=== PATIENT | male | born 1985 | race Caucasian/White ===

== ENCOUNTER 2021-05-24 16:15 | Emergency (ER) | payer OTHER, SELFPAY ==
[2021-05-24 16:18] VITALS: BP 127/77; PULSE 91; RESP 18; TEMP 36.4; O2SAT 97
--- NOTE | 2021-05-24 16:50 | W.ED.GENAD ---
Discharge Plan Disposition Patient Disposition: HOME Condition: Stable Discharge Details Clinical Impression: COVID-19 Primary Care Provider: [facility] ED Provider: Tawnya Johnson Home Meds and New Rx's Prescriptions: Continued bupropion HCl [Wellbutrin SR] 100 MG tablet extended release 12 hr 100 mg PO DAILY RF: 0 aspirin [Yazmin Aspirin] 325 mg Tablet 650 mg PO Q8H PRNRF: 0 ibuprofen 200 mg Tablet 400 mg PO Q8H PRNRF: 0 Discharge Instructions Instructions: Viral Syndrome (ED) Additional Instructions: monitor oxygen sats 2 times daily, report sustained sats less than 92% continue ibuprofen 600 mg 4 times daily take with food, can alternate with acetaminophen 650 mg 4 times daily Referrals: [facility] [Primary Care Provider] - Medical Decision Making healthy 35 year old diagnosed with covid 6 days ago. does not meet criteria for monoclonal antibodies. his vitals are normal, oxygenating in the high 90's on room air. he has no shortness of breath or tachypnea , breath sounds are normal throughout. safe for discharge to home. will give pulse oximeter with instruction HPI General Date/Time Provider Initiated Documentation: 05/24/21 16:18. Limitations to Documentation: no limitations. Information obtained by: patient. HPI Narrative: patient presents for evaluation of fever, body aches,headache. was diagnosed with covid 6 days ago. girlfriend also has it. able to eat and drink. no shortness of breath Related Data Home Medications Medication Instructions Recorded Confirmed bupropion HCl [Wellbutrin SR] 100 mg PO DAILY 02/09/13 05/24/21 aspirin [Yazmin Aspirin] 650 mg PO Q8H PRN 05/24/21 05/24/21 ibuprofen 400 mg PO Q8H PRN 05/24/21 05/24/21 Allergies Allergy/AdvReac Type Severity Reaction Status Date / Time No Known Allergies Allergy Unverified 05/24/21 16:21 General Stated Complaint: Fever KRAIG: 3 Review of Systems All systems reviewed & are unremarkable except as noted in HPI and below Constitutional Constitutional: Reports body ache(s) and Reports fever(s) Eyes Eyes: Denies loss of vision ENT Ears, Nose, Mouth, and Throat: Reports nasal congestion and Reports sore throat Cardiovascular Cardiovascular: Denies chest pain and Denies dyspnea Respiratory Respiratory: Reports cough, Denies pain with cough and Denies dyspnea Gastrointestinal Gastrointestinal: Denies vomiting Musculoskeletal Musculoskeletal: Reports myalgias Integumentary/Breasts Skin/Breast: Denies lesions and Denies rash Neurologic Neurologic: Denies loss of vision [facility] Social History Smoking/Tobacco Use Status: Former Tobacco Use Smoking risk assessment performed?: Yes Drug use: Never Do you feel safe at home: Yes Do you feel safe in your relationship?: Yes Exam Const General: cooperative, healthy appearing, comfortable and no acute distress Nutritional Appearance: average body habitus and well nourished Orientation: alert, awake and oriented x3 HENMT Head: normal to inspection, normocephalic and atraumatic Neck Neck: normal visual inspection, full ROM and meningismus present Resp Effort & Inspection: normal respiratory effort Auscultation: clear to auscultation bilaterally Cardio Rate: regular rate Rhythm: regular rhythm GI Inspection: normal to inspection Skin General skin exam: no rashes or lesions noted Neuro General: patient alert, patient awake and patient oriented x3 Extrem General: normal to inspection and full ROM Psych Appearance: grossly normal Mental Status: mental status grossly normal Speech and Movement: speech and movement normal Mood: congruent mood Affect: normal affect Attitude: cooperative Thought Process: normal Thought Content: normal Insight: insight good Judgment: judgment good Course Vital Signs Vital signs: Vital Signs Temperature 36.4 C L 05/24/21 16:18 Pulse 91 H 05/24/21 16:18 Respiratory Rate 18 05/24/21 16:18 Blood Pressure 127/77 05/24/21 16:18 Pulse Oximetry 97 05/24/21 16:18 Temperature 36.4 C L 05/24/21 16:18 Temperature Source Temporal Artery Scan 05/24/21 16:18 Pulse 91 H 05/24/21 16:18 Respiratory Rate 18 05/24/21 16:18 Respiratory Effort Non-Labored 05/24/21 16:23 Blood Pressure 127/77 05/24/21 16:18 Blood Pressure Position Sitting 05/24/21 16:18 Pulse Oximetry 97 05/24/21 16:18 Oxygen Delivery Method Room Air 05/24/21 16:18 Oxygen Flow Rate 0 05/24/21 16:18 Pain Level 0 05/24/21 16:18
== END 2021-05-24 17:02 | disposition home or self-care (01) ==
PROVIDERS: Emergency Provider Nurse Practitioner Acute Care
DX: U07.1 COVID-19 (principal)
CPT/HCPCS: 99282; 99283

== ENCOUNTER 2021-06-10 19:57 | Inpatient (IN) | payer OTHER, SELFPAY ==
[2021-06-10] VITALS (31 sets, daily range): BP systolic 108–143; BP diastolic 67–109; PULSE 84–111; RESP 16–27; TEMP 37–37.3; O2SAT 94–98
--- NOTE | 2021-06-10 20:03 | W.ED.GENAD ---
Discharge Plan Disposition Patient Disposition: [facility] INPATIENT Condition: Stable Discharge Details Clinical Impression: Pulmonary embolism Primary Care Provider: [facility] ED Provider: Trevor Rosenthal Dietrich Meds and New Rx's Prescriptions: No Action bupropion HCl [Wellbutrin SR] 100 MG tablet extended release 12 hr 100 mg PO DAILY RF: 0 ibuprofen 200 mg Tablet 400 mg PO Q8H PRNRF: 0 Medical Decision Making Patient presenting with right sided pain extending from upper lumbar region to shoulder. Previous COVID earlier this month. Concern for pneumothorax versus PE versus cholecystitis versus pyelonephritis. IV established and fluid as well as morphine given. Laboratory studies obtained. Portable chest x-ray obtained. EKG ordered. Portable chest x-ray without pneumothorax so CTA of the chest as well as CT abdomen pelvis ordered. Laboratory studies unremarkable. EKG normal. CTA of chest shows a right lower lobe segmental pulmonary embolus with infarct. Patient remains hemodynamically stable and is not hypoxic. He is still in continued significant pain. Case discussed with hospitalist. As he is stable we will treat with Lovenox but admit for pain control using morphine and ketorolac as needed. Also noted to have continuing the inflammatory changes likely close COVID in his lungs. Abdomen pelvis unremarkable. HPI General Mode of arrival: ambulatory. Date/Time Provider Initiated Documentation: 06/10/21 20:03. Limitations to Documentation: no limitations. Information obtained by: patient and RN notes reviewed. HPI Narrative: Patient presents to the ED with right sided thoracic and upper lumbar pain. It is described as pleuritic in nature. He is extremely uncomfortable and unable to take a deep breath though does not necessarily feel short of breath. He had COVID at the beginning of this month and recovered without significant sequela. He had been fine until a coughing spasm this morning. Subsequently has developed severe right sided pain. He denies fever or continued cough. He denies abdominal pain per se though he has difficulty deciding whether it is chest or back or upper abdomen that is causing him the discomfort. He denies vomiting or diarrhea. He denies urinary symptoms or hematuria. He denies leg pain or leg swelling. Related Data Home Medications Medication Instructions Recorded Confirmed bupropion HCl [Wellbutrin SR] 100 mg PO DAILY 02/09/13 06/10/21 ibuprofen 400 mg PO Q8H PRN 05/24/21 06/10/21 Allergies Allergy/AdvReac Type Severity Reaction Status Date / Time No Known Allergies Allergy Unverified 05/24/21 16:21 General KRAIG: 3 Review of Systems Narrative: 04/28 Review of Systems completed and is negative except as stated above in HPI (Systems reviewed: Const, Eyes, ENT, Resp, CV, GI, , MSK, Skin, Neuro) [facility] Medical History No significant past medical history Surgical History No significant past surgical history Social History Smoking/Tobacco Use Status: Former Tobacco Use Smoking risk assessment performed?: Yes Alcohol Intake: never Drug use: Never Substance use type: does not use Do you feel safe at home: Yes Do you feel safe in your relationship?: Yes Exam Narrative Exam Narrative: Const: WDWN male in NAD but uncomfortable HEENT: NC/AT. Normal facial exam. Eyes: Normal conjunctiva and sclera. Neck: Supple. Trachea midline. Lungs: Limited inspiration due to pain. Lungs are clear. Cor: RRR without murmur/gallop. Good radial pulses. GI: Soft. ND. Tender RUQ Back: No CVAT Neuro: A+O x 3. Normal speech, mentation, gait. Cranial nerves II - XII grossly intact. No gross motor or sensory deficit. Ext: No C/C/E. No calf tenderness. Skin: Warm and dry without rash.
--- NOTE | 2021-06-10 20:15 | DI.RAD_ITS ---
Exam(s) XR PORTABLE CHEST AP EXAM: XR PORTABLE CHEST AP CLINICAL HISTORY: R CP. TECHNIQUE: 2D digital imaging was performed. COMPARISON: No exams were available for comparison FINDINGS: Heart size is upper normal. The mediastinum is not widened. Increased markings in both lungs are related to a suboptimal inspiratory effort here. There are no o bvious confluent infiltrates nor pleural effusions. No pneumothorax. IMPRESSION: Suboptimal inspiration. Recommend nonportable PA and lateral views when clinically possible. DATA REPOSITORY: RADIATION DOSE DELIVERED: All CT scans at this facility use at least one of these dose optimization techniques: automated exposure control; mA and/or kV adjustment per patient size (includes targeted e xams where dose is matched to clinical indication); or iterative reconstruction.
--- NOTE | 2021-06-10 20:15 | RT.EKG_ITS ---
APPROVED REPORT Exam: Resting ECG Reason for Exam: cp Patient Location: E HR:95 bpm ECG Measurements Heart Rate 95 AXIS HI 175 P 14 QRSd 108 QRS 77 QT 335 T -12 QTc 421 Conclusion Sinus rhythm...normal P axis, V-rate 60- 99 Normal Firth I have reviewed and interpreted ECG and agree with software generated interpretation.
[2021-06-10 20:23] LABS: Bilirubin Negative (Negative); Blood Negative (Negative); Clarity Clear (Clear); Glucose Negative (Negative); Ketones Negative (Negative); Leukocyte Esterase Negative (Negative); Nitrite Negative (Negative); Urobilinogen 0.2 EU/dL (Up TO 0.2); pH 6.5 (5-8)
[2021-06-10] MEDS: Lactated Ringers 1,000 ML 200 ML IV (20:31)
[2021-06-10 20:49] LABS: Lactate 2.1 mmol/L (0.6-1.4)
[2021-06-10 20:50] LABS: Abs Immature Grans 0.08 10^3/uL (0.0-0.06); Absolute Monocyte Count 1.12 10^3/uL (0.1-0.8); Basophils % 0.3; Eosinophils % 0.3; HCT 43.2 % (40.0-50.0); HGB 14.1 g/dL (13.5-17.5); Immature Grans % 0.7; Lymphocytes % 11.8; MCH 28.4 pg (27.0-33.0); MCHC 32.6 % (32.0-36.0); MCV 86.9 fL (80-95); MPV 9.9 fL (8.0-11.0); Monocytes % 9.5; Neutrophils % 77.4; Nucleated RBC 0 %; Platelet Count 405 10^3/uL (130-400); RBC 4.97 10^6/uL (4.36-5.78); RDW 12.3 % (11.8-14.1); RDW-SD 38.8 fL; WBC 11.83 10^3/uL (4.4-10.8)
[2021-06-10 20:51] LABS: Absolute Basophil Count 0.04 10^3/uL (0.0-0.2); Absolute Eosinophil Count 0.04 10^3/uL (0.0-0.7); Absolute Neutrophil Count 9.16 10^3/uL (1.2-6.7)
[2021-06-10 20:54] LABS: ALT 55 U/L (16-63); AST 25 U/L (15-37); Alkaline Phosphatase 73 U/L (46-116); Anion Gap 8.7 mmol/L (3-11); BUN 16 mg/dL (7-18); Bilirubin, Total 0.8 mg/dL (0.2-1.0); CO2 31.3 mmol/L (21.0-32.0); CREATININE 1.1 mg/dL (0.70-1.30); Calcium 9.3 mg/dL (8.5-10.1); Chloride 99 mmol/L (98-107); Glucose 100 mg/dL (74-106); Lipase 77 U/L (73-393); Potassium 3.3 mmol/L (3.5-5.1); Sodium 139 mmol/L (136-145); Total Protein 8.6 g/dL (6.4-8.2)
--- NOTE | 2021-06-10 21:00 | DI.CT_ITS ---
Exam(s) CT CHEST PE ABD PELVIS W EXAM: CT CHEST PE ABD PELVIS W CLINICAL HISTORY: right thoracic/flank pain. TECHNIQUE: Imaging Protocol: Axial CT angiography was performed with multi-slice acquisition and m ulti-planar and/or 3D reconstructions. CONTRAST MATERIAL: Intravenous: Omnipaque 350 Contrast volume:100 ml Oral: None COMPARISON: CR,XR XR PORTABLE CHEST AP from 06/10/2021 CR,XR XR PORTABLE CHEST AP from 06/10/2021 FINDINGS: CHEST: PULMONARY ARTERIES: There is an intra arterial filling defect in the right lower lobe posterior basal segment consistent with pulmonary embolus. No filling defects seen within the arterial system of th e opposite-left lung. LUNGS: There is patchy infiltrate in both lung denise. Consistent with pneumonitis and suspicious fo r Covid-19..Infiltrate in the posterior basal segment of the right lower lobe is denser than elsewher e may also represent superimposed developing pulmonary infarction, given that this is the territory o f the embolized right lower lobe pulmonary artery. There are no pleural effusions.No focal findings in trachea mainstem bronchi. MEDIASTINUM: No hilar adenopathy. Subcarinal adenopathy noted. Visualized thyroid unremarkable. CARDIAC: Heart size is normal. There is no pericardial effusion. There is no significant shift of t he interventricular septum.Caliber of the thoracic aorta is within normal limits. OSSEOUS: No significant osseous lesions.. ABDOMEN: There is no ascites. LIVER: There are no focal hepatic lesions nor dilatation of intrahepatic ducts. GALLBLADDER/BILIARY: No obvious gallbladder pathology. CBD is not dilated. PANCREAS: No evidence of pancreatic mass nor dilatation of the pancreatic duct. SPLEEN: Spleen is not enlarged. There are no intrasplenic lesions. Splenic and portal veins are fofana nt. ADRENALS: There are no significant adrenal masses. KIDNEYS:No cysts evident. No calculi nor hydronephrosis. No solid renal masses. ABDOMINAL AORTA: Abdominal aorta is not enlarged. LYMPH NODES: There is no retroperitoneal or para-aortic adenopathy. ABDOMINAL WALL/GI: No evidence of significant anterior abdominal wall hernia. No bowel obstruction. Abundant fecal material noted in the rectum. There are a few sigmoid diverticuli. No obvious acute diverticulitis. PELVIS: LYMPH NODES: There is no intrapelvic nor inguinal adenopathy. GI: No evidence of appendicitis.No evidence of sigmoid diverticulitis. URINARY BLADDER: No calculi nor masses evident REPRODUCTIVE: Prostate not enlarged OSSEOUS: No significant osseous lesions. Bilateral pars defects at L5 with anterolisthesis L5 upon S1 approximately 8 millimeters. There is a lso advanced narrowing of this L5-S1 disc space. IMPRESSION: 1. Intraluminal filling defect consistent with acute pulmonary embolus in a right lower lobe artery. This is servicing the posterior basal segment of the right lower lobe. No other pulmonary emboli ev ident. 2. Bilateral patchy infiltrates throughout both lung denise, suspicious for Covid-19. No pleural eff usions. Recommend appropriate testing. 3. No acute intra-abdominal process although there is abundant fecal material noted in the rectum. T here is, however, no evidence of bowel obstruction. No free air. No abscess. RADIATION DOSE DELIVERED: 2,194.29mGy.cm Total DLP DATA REPOSITORY: All CT scans at this facility are submitted to the National Radiology Data Registry (NRDR) Dose Index Registry (DIR) with the [employer] ([employer]). RADIATION OPTIMIZATION: All CT scans at this facility use at least one of these dose optimization te chniques: automated exposure control; mA and/or kV adjustment per patient size (includes targeted exa ms where dose is matched to clinical indication); or iterative reconstruction.
--- NOTE | 2021-06-10 21:30 | DI.VRAD_ITS ---
PROCEDURE INFORMATION: Exam: XR Chest Exam date and time: 06/10/2021 8:26 PM Age: 35 years old Clinical indication: Other: Right chest pain TECHNIQUE: Imaging protocol: XR of the chest. Views: 1 view. COMPARISON: No relevant prior studies available. FINDINGS: Lungs: Hypoventilatory study. No focal consolidation. Pleural spaces: Unremarkable. No pleural effusion. No pneumothorax. Heart/Mediastinum: Unremarkable. No cardiomegaly. Bones/joints: Unremarkable. IMPRESSION: No focal consolidation Dictated and Authenticated by: Randell Suresh MD. Ordering:AMENA Murray MD
[2021-06-10] MEDS: Normal Saline Flush 10 ML SYR IVP (22:23)
[2021-06-10] MEDS: Omnipaque 350 MG/ML 100 ML BTL IJ (22:32)
[2021-06-10] MEDS: Normal Saline - Diluent 50 ML VIAL IV (22:33)
--- NOTE | 2021-06-10 22:54 | DI.VRAD_ITS ---
PROCEDURE INFORMATION: Exam: CTA Chest With Contrast Exam date and time: 06/10/2021 9:10 PM Age: 35 years old Clinical indication: Other: Right thoracic/flank pain; Patient HX: Post covid first of month TECHNIQUE: Imaging protocol: Computed tomographic angiography of the chest with contrast. 3D rendering (Not supervised by radiologist): MIP and/or 3D reconstructed images were created by the technologist. COMPARISON: XR PORTABLE CHEST AP 06/10/2021 8:45 PM FINDINGS: Pulmonary arteries: There is a filling defect at the segmental level in the right lower lobe posteriorly. See image 300 of series 6 and image 67 of series 7. Aorta: Unremarkable. No aortic aneurysm. Lungs: Fairly diffuse bilateral pulmonary opacities are seen that are favored to be inflammatory. In addition, there is a consolidation in right posterior base that is favored to be an infarct. Pleural spaces: Unremarkable. No pneumothorax. No pleural effusion. Heart: Unremarkable. No cardiomegaly. No pericardial effusion. Lymph nodes: Unremarkable. No enlarged lymph nodes. Bones/joints: Unremarkable. No acute fracture. Soft tissues: Unremarkable. IMPRESSION: 1. A segmental pulmonary embolus is seen in the right lower lobe posteriorly. 2. Additional diffuse inflammatory changes are seen which could relate to an atypical pneumonia. Case discussed with Dr. Rosenthal over the phone at 6:50 p.m. [place] time PROCEDURE INFORMATION: Exam: CT Angiography Abdomen With Contrast Exam date and time: 06/10/2021 9:10 PM Age: 35 years old Clinical indication: Other: Right thoracic/flank pain; Patient HX: Post covid first of TECHNIQUE: Imaging protocol: Computed tomographic angiography images of the abdomen with intravenous contrast material. 3D rendering (Not supervised by radiologist): MIP and/or 3D reconstructed images were created by the technologist. COMPARISON: XR PORTABLE CHEST AP 06/10/2021 8:45 PM FINDINGS: Aorta: No aortic aneurysm. No aortic dissection. Celiac trunk and mesenteric arteries: No occlusion or significant stenosis. Renal arteries: No occlusion or significant stenosis. Liver: Normal. No mass. Gallbladder and bile ducts: Normal. No calcified stones. No ductal dilation. Pancreas: Normal. No ductal dilation. Spleen: Normal. No splenomegaly. Adrenals: Normal. No mass. Kidneys and ureters: Normal. No hydronephrosis. Stomach and bowel: An 8 cm rectal stool ball is noted. Lymph nodes: Unremarkable. No enlarged lymph nodes. Intraperitoneal space: Unremarkable. No free air. No significant fluid collection. Bones/joints: Unremarkable. No acute fracture. No dislocation. Soft tissues: Unremarkable. IMPRESSION: 1. No acute intra-abdominal pathology 2. An 8 cm rectal stool ball is noted Dictated and Authenticated by: Randell Suresh MD. Ordering:AMENA Murray MD
[2021-06-10 23:12] LABS: INR 1.1 (0.9-1.1); PTT Activated 28.3 sec (21.0-27.5); Prothrombin Time 10.9 sec (9.3-11.0)
--- NOTE | 2021-06-10 23:12 | HPE_ITS ---
Date of service: 06/10/21 Time of Service: 23:12 Assessment and Plan Assessment and plan (1) Pulmonary embolism and infarction: Start date: 06/10/21 Status: Acute Assessment and plan: This is a 35-year-old gentleman who has an acute onset of respiratory symptoms with pleuritic pain consistent with acute pulmonary embolus by CTA of the chest imaging and clinical presentation. He does have a risk of hypercoagulability with recent Covid infection but has had no peripheral edema or other evidence of peripheral thrombus formation. He will be treated with Lovenox and transition hopefully to Eliquis with monitoring with possible pulmonary infarction. He did have hemoptysis early during the course of this problem but no persistence of hemoptysis. Watch for further bleeding complications while anticoagulating. Patient is generally healthy. (2) Pleuritic pain: Start date: 06/10/21 Status: Acute Assessment and plan: Pleuritic pain associate with probable pulmonary infarction and patient is more comfortable with aggressive treatment of pain responding to morphine IV and Toradol use for 1 dose but possibly should be avoided with anticoagulation. He does have some stool on CT of the abdomen which may indicate constipation and if he is to be on narcotics we should prophylax for constipation. Continue pain management with plans for oral treatment with Eliquis at discharge. History of Present Illness History of Present Illness Chief Complaint: Pain with inspiration over right side Narrative: This is a 35-year-old male patient who had Covid infection more than 3 weeks ago and had isolation with return to work recently. He complained of cough with hemoptysis the morning of presentation without discomfort though the cough has been paroxysmal and persistent. He went to work as usual and a day progressed began to have discomfort with deep inspiration which was over his right lower chest going into his right shoulder. The pain became persistent and he reported to the ED for evaluation especially since he has had hemoptysis earlier in the same day. In the ED he was found to have a right pulmonary embolus with probable pulmonary infarction as a cause of his pleuritic discomfort. He was given pain management and started on Lovenox. He did not manifest hypoxemia. He had no fever or evidence of pneumonia. Pertinent review of systems negative for any GI symptoms and he had no sequela from his Covid infection. Review of Systems Narrative: 13 point review of systems otherwise unrevealing or stable. [facility] Medical History No significant past medical history Surgical History No significant past surgical history Social History Smoking/Tobacco Use Status: Former Tobacco Use Smoking risk assessment performed?: Yes Alcohol Intake: never Drug use: Never Substance use type: does not use Do you feel safe at home: Yes Do you feel safe in your relationship?: Yes Meds Allergies and Home Medications Allergies Allergy/AdvReac Type Severity Reaction Status Date / Time No Known Allergies Allergy Unverified 05/24/21 16:21 Home Medications Medication Instructions Recorded Confirmed Type bupropion HCl [Wellbutrin SR] 100 mg PO DAILY 02/09/13 06/10/21 History ibuprofen 400 mg PO Q8H PRN 05/24/21 06/10/21 History apixaban [Eliquis DVT-PE Treat 30D 5 mg PO Q12H #74 dose pk 06/11/21 Rx Start] Exam Narrative Exam Narrative: General: Patient appears appropriate for age, in no acute distress but is uncomfortable with deep inspiration. Alert and oriented x3. He is mesomorphic and thinly built. He has multiple tattoos over his body. HEENT: Normocephalic, eyes with pupils equal and reactive light symmetrically, extraocular movement intact and sclera anicteric. Oropharynx with moist mucosa and good dentition. Neck: Supple without JVD. Back: Normal posture without CVA tenderness. Lungs: Decreased aeration over right base with no inspiratory crackles. Patient is taking less deep inspiration because of discomfort. Normal inspiratory to expiratory phase ratio. No rhonchi. Dullness to percussion over right base. No egophony. Heart: Regular rate and rhythm with no murmurs gallops appreciated. Abdomen: Scaphoid contour, soft nontender to palpation with no palpable hepatosplenomegaly. Bowel sounds positive in all quadrants. Genitalia/rectal: Exam deferred. Extremities: Without clubbing, cyanosis or pitting edema. Peripheral pulses intact. All joints have good range of motion. Skin: Normal color, multiple tattoos over body, warm and dry. Neuro: Cranial Nerves 2-12 gross intact, no focalizing motor deficits. Psych: Normal mood and affect, no abnormal thought processes. Remote and recent memory intact. Results Imaging Imaging Studies: Exam: XR Chest Exam date and time: 06/10/2021 8:26 PM Age: 35 years old Clinical indication: Other: Right chest pain TECHNIQUE: Imaging protocol: XR of the chest. Views: 1 view. COMPARISON: No relevant prior studies available. FINDINGS: Lungs: Hypoventilatory study. No focal consolidation. Pleural spaces: Unremarkable. No pleural effusion. No pneumothorax. Heart/Mediastinum: Unremarkable. No cardiomegaly. Bones/joints: Unremarkable. IMPRESSION: No focal consolidation Dictated and Authenticated by: Randell Suresh MD. Exam: CTA Chest With Contrast Exam date and time: 06/10/2021 9:10 PM Age: 35 years old Clinical indication: Other: Right thoracic/flank pain; Patient HX: Post covid first of month TECHNIQUE: Imaging protocol: Computed tomographic angiography of the chest with contrast. 3D rendering (Not supervised by radiologist): MIP and/or 3D reconstructed images were created by the technologist. COMPARISON: XR PORTABLE CHEST AP 06/10/2021 8:45 PM FINDINGS: Pulmonary arteries: There is a filling defect at the segmental level in the right lower lobe posteriorly. See image 300 of series 6 and image 67 of series 7. Aorta: Unremarkable. No aortic aneurysm. Lungs: Fairly diffuse bilateral pulmonary opacities are seen that are favored to be inflammatory. In addition, there is a consolidation in right posterior base that is favored to be an infarct. Pleural spaces: Unremarkable. No pneumothorax. No pleural effusion. Heart: Unremarkable. No cardiomegaly. No pericardial effusion. Lymph nodes: Unremarkable. No enlarged lymph nodes. Bones/joints: Unremarkable. No acute fracture. Soft tissues: Unremarkable. IMPRESSION: 1. A segmental pulmonary embolus is seen in the right lower lobe posteriorly. 2. Additional diffuse inflammatory changes are seen which could relate to an atypical pneumonia. Case discussed with Dr. Rosenthal over the phone at 6:50 p.m. [place] time PROCEDURE INFORMATION: Exam: CT Angiography Abdomen With Contrast Exam date and time: 06/10/2021 9:10 PM Age: 35 years old Clinical indication: Other: Right thoracic/flank pain; Patient HX: Post covid first of month TECHNIQUE: Imaging protocol: Computed tomographic angiography images of the abdomen with intravenous contrast material. 3D rendering (Not supervised by radiologist): MIP and/or 3D reconstructed images were created by the technologist. COMPARISON: XR PORTABLE CHEST AP 06/10/2021 8:45 PM FINDINGS: Aorta: No aortic aneurysm. No aortic dissection. Celiac trunk and mesenteric arteries: No occlusion or significant stenosis. Renal arteries: No occlusion or significant stenosis. Liver: Normal. No mass. Gallbladder and bile ducts: Normal. No calcified stones. No ductal dilation. Pancreas: Normal. No ductal dilation. Spleen: Normal. No splenomegaly. Adrenals: Normal. No mass. Kidneys and ureters: Normal. No hydronephrosis. Stomach and bowel: An 8 cm rectal stool ball is noted. Lymph nodes: Unremarkable. No enlarged lymph nodes. Intraperitoneal space: Unremarkable. No free air. No significant fluid collection. Bones/joints: Unremarkable. No acute fracture. No dislocation. Soft tissues: Unremarkable. IMPRESSION: 1. No acute intra-abdominal pathology 2. An 8 cm rectal stool ball is noted Dictated and Authenticated by: Randell Suresh MD. Labs Result diagrams: 06/11/21 07:28 06/11/21 07:28 Labs: Laboratory Results - last 24 hr 06/10/21 06/10/21 06/10/21 20:00 20:10 20:10 WBC 11.83 H RBC 4.97 Hgb 14.1 Hct 43.2 MCV 86.9 MCH 28.4 MCHC 32.6 RDW 12.3 Plt Count 405 H MPV 9.9 Immature Gran % 0.7 Neutrophils % 77.4 Lymphocytes % 11.8 Monocytes % 9.5 Eosinophils % 0.3 Basophils % 0.3 Nucleated RBC % 0 Absolute Neutrophils 9.16 H Absolute Lymphocytes 1.40 Absolute Monocytes 1.12 H Absolute Eosinophils 0.04 Absolute Basophils 0.04 PT 10.9 INR 1.1 APTT 28.3 H VBG Lactate Sodium 139 Potassium 3.3 L Chloride 99 Carbon Dioxide 31.3 Anion Gap 8.7 BUN 16 Creatinine 1.1 Estimated GFR/1.73 m2 >= 60.00 Glucose 100 Calcium 9.3 Total Bilirubin 0.8 AST 25 ALT 55 Alkaline Phosphatase 73 Total Protein 8.6 H Albumin 4.0 Lipase 77 Urine Color Urine Clarity Urine pH Ur Specific [place] Urine Protein Urine Ketones Urine Blood Urine Nitrite Urine Bilirubin Urine Urobilinogen Ur Leukocyte Esterase Urine Glucose 06/10/21 06/10/21 06/10/21 20:13 20:29 20:40 WBC RBC Hgb Hct MCV MCH MCHC RDW Plt Count MPV Immature Gran % Neutrophils % Lymphocytes % Monocytes % Eosinophils % Basophils % Nucleated RBC % Absolute Neutrophils Absolute Lymphocytes Absolute Monocytes Absolute Eosinophils Absolute Basophils PT INR APTT VBG Lactate 2.1 H Sodium Potassium Chloride Carbon Dioxide Anion Gap BUN Creatinine Estimated GFR/1.73 m2 Glucose Calcium Total Bilirubin AST ALT Alkaline Phosphatase Total Protein Albumin Lipase Urine Color Yellow Cancelled Urine Clarity Clear Cancelled Urine pH 6.5 Cancelled Ur Specific [place] 1.020 Cancelled Urine Protein Negative Cancelled Urine Ketones Negative Cancelled Urine Blood Negative Cancelled Urine Nitrite Negative Cancelled Urine Bilirubin Negative Cancelled Urine Urobilinogen 0.2 Cancelled Ur Leukocyte Esterase Negative Cancelled Urine Glucose Negative Cancelled Last Vital Signs Temp 37.3 C 06/10/21 20:03 Pulse 97 H 06/10/21 21:16 Resp 21 06/10/21 21:30 BP 130/74 06/10/21 21:16 Pulse Ox 96 06/10/21 21:30
[2021-06-10] MEDS: Enoxaparin 120 MG/0.8 ML SYR SC (23:26)
[2021-06-10] MEDS: Ketorolac 30 MG/ML VIAL IVP (23:26)
[2021-06-10 23:51] LABS: Source Nasal/Nares
[2021-06-11] VITALS (8 sets, daily range): BP systolic 108–118; BP diastolic 60–73; PULSE 68–103; RESP 12–18; TEMP 36.4–37.9; O2SAT 93–97
[2021-06-11 00:49] LABS: COVID-19 PCR Negative (Negative)
[2021-06-11] MEDS: Acetaminophen 325 MG TAB 650 MG PO ×3 (00:54→10:35)
[2021-06-11] MEDS: Lactated Ringers 1,000 ML 200 ML IV (00:55)
[2021-06-11] MEDS: MORPHine 10 MG/ML VIAL 4 MG IVP (04:33)
[2021-06-11] MEDS: Normal Saline Flush 10 ML SYR IVP (04:34)
[2021-06-11 08:07] LABS: Abs Immature Grans 0.03 10^3/uL (0.0-0.06); Absolute Basophil Count 0.02 10^3/uL (0.0-0.2); Absolute Eosinophil Count 0.01 10^3/uL (0.0-0.7); Absolute Lymphocyte Count 1.11 10^3/uL (1.2-3.4); Absolute Monocyte Count 1.27 10^3/uL (0.1-0.8); Absolute Neutrophil Count 6.57 10^3/uL (1.2-6.7); Basophils % 0.2; Eosinophils % 0.1; HGB 12.6 g/dL (13.5-17.5); Immature Grans % 0.3; Lymphocytes % 12.3; MCH 29.1 pg (27.0-33.0); MCHC 33.2 % (32.0-36.0); MCV 87.8 fL (80-95); MPV 9.6 fL (8.0-11.0); Monocytes % 14.1; Nucleated RBC 0 %; Platelet Count 278 10^3/uL (130-400); RBC 4.33 10^6/uL (4.36-5.78); RDW 12.2 % (11.8-14.1); WBC 9.01 10^3/uL (4.4-10.8)
[2021-06-11 08:24] LABS: ALT 40 U/L (16-63); AST 19 U/L (15-37); Albumin 3.2 g/dL (3.4-5.0); Alkaline Phosphatase 63 U/L (46-116); Anion Gap 8.8 mmol/L (3-11); BUN 15 mg/dL (7-18); Bilirubin, Total 1.1 mg/dL (0.2-1.0); CO2 28.2 mmol/L (21.0-32.0); CREATININE 1.1 mg/dL (0.70-1.30); Calcium 8.9 mg/dL (8.5-10.1); Chloride 102 mmol/L (98-107); Glucose 102 mg/dL (74-106); Potassium 3.4 mmol/L (3.5-5.1); Sodium 139 mmol/L (136-145); Total Protein 7.2 g/dL (6.4-8.2)
--- NOTE | 2021-06-11 08:43 | PDOC.CMIN ---
- If Service Date Differs Date of service: 06/11/21 Time of Service: 08:43 Care Management Initial Assess REASON FOR HOSPITALIZATION:: Pulmonary Embolus; Pluritic Pain. PAST MEDICAL HISTORY/PAST SURGICAL HISTORY:: Medical/Surgical History: No past medical or surgical history noted in chart. PREVIOUS FUNCTIONAL STATUS/SOCIAL/FAMILY SUPPORTS:: Bang lives in [place] with his fikrista, 2 daughters, a step-son, and a nephew. 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 In his free time, Bang enjoys outdoor activities such as hunting, fishing, camping, hiking, etc. Bang drives and is independent at baseline. CURRENT FUNCTIONAL STATUS:: Bang is lying in bed when CM comes to meet with him. He is pleasant and easily engages in conversation. He states he is feeling better and is looking forward to returning home. ADVANCE DIRECTIVES:: None in file; CM provides Bang with an Advance Directives for completion at a later time. Has patient been provided with info about the portal/API?: Yes Did the patient sign up for the portal?: Yes CODE STATUS:: Full Code INSURANCE COVERAGE / FINANCIAL ISSUES:: [facility]. CURRENT HOME/COMMUNITY SERVICES/EQUIPMENT:: None. PRIMARY CARE PHYSICIAN:: [facility] POTENTIAL DISCHARGE NEEDS:: Follow up appointment with PCP. PATIENT/FAMILY EDUCATION NEEDS:: Discharge instructions including limitations and follow up plan of care; discuss Ask Me Three and self-care. ANTICIPATED BARRIERS TO DISCHARGE:: No anticipated barriers at this time. TRANSPORTATION:: Via private vehicle with howie. PLAN:: Bang will be discharged home with no new services when medically cleared by provider. He will follow up with his PCP and discharge plan of care as directed. His fiancee will drive him home via private vehicle when ready. CM will continue to follow.
[2021-06-11] MEDS: Potassium Chloride 20 MEQ TABCR 40 MEQ PO (09:01)
[2021-06-11] MEDS: traMADol 50 MG TAB PO (10:34)
[2021-06-11] MEDS: Apixaban 5 MG TAB 10 MG PO (11:19)
--- NOTE | 2021-06-11 14:16 | DSE_ITS ---
Date of service: 06/11/21 Time of Service: 14:16 DS: Diagnosis Discharge Diagnosis (1) Pulmonary embolism and infarction: Start date: 06/11/21 Start time: 14:16 Status: Acute Asessment and Plan: Recently had COVID on 05/17 likely the cause of PE. Found to have PE by CTA. A segmental pulmonary embolus is seen in the right lower lobe posteriorly. Also states possible atypical pneumonia. however he is post covid. no clinical sx of pneumonia, will not treat at this time. repeat CT or xray in 4 weeks. PE likely result from COVID. Treatment with apixaban. Received first dose today. 10 mg BID x 7 days then 5 mg BID. Follow up with PCP in 1 week. (2) Pleuritic pain: Start date: 06/11/21 Start time: 14:21 Status: Acute Asessment and Plan: d/t above. will give tramadol for pain. discussed with Dr. Johnson (3) COVID-19: Status: Resolved Discharge Plan Disposition Patient Disposition: HOME Condition: Stable Discharge Details Reason For Visit: Pulmonary Embolus;Pluritic Pain Admit Date/Time: 06/10/21 23:07 Admit Provider: Elie Morgan Attending Provider: Elie Morgan Primary Care Provider: [facility] Hospital Course Hospital Course: 35 y.o male admitted to [facility] with CP, found to have A segmental pulmonary embolus is seen in the right lower lobe posteriorly. He was COVID positive on 05/17. He has not received his vaccination. He is not requiring oxygen. He looks well. States he feels well, he does have some pleuretic chest pain; otherwise no SOB. He feels well enough to go home. Potassium this am was 3.4 repleted. He will be placed on eliquis for PE 10 mg BID x 7 days then 5 mg BID. He will continue for at least 3 months will defer to outpatient PCP for management of time. He does not require any services at this time.Will give tramadol for pain. Home Meds and New Rx's Prescriptions: New Eliquis DVT-PE Treat 30D Start 5 mg (74 tabs) tablets,dose pack 5 mg PO Q12H Qty: 74 RF: 0 tramadol 50 mg Tablet 50 mg PO Q4H PRN PRNQty: 20 RF: 0 Continued bupropion HCl [Wellbutrin SR] 100 MG tablet extended release 12 hr 100 mg PO DAILY RF: 0 Discontinued ibuprofen 200 mg Tablet 400 mg PO Q8H PRNRF: 0 Discharge Instructions Instructions: Pulmonary Embolism (DC), Pleurisy (DC) Additional Instructions: Follow up with PCP in 1 week Take apixaban 10 mg twice a day for 7 days, first dose was this morning, then after 7 days decrease to 5 mg twice a day Activity:: Activity as Tolerated Equipment/Supplies:: No Equipment Needed Diet:: As Tolerated Discharge Orders Discharge Orders: Discharge Order (Routine); Ordered 06/11/21 Ordered By: Amina Bailey DS: Summary Time Spent with Patient providing and/or coordinating discharge services: Less than 30 minutes Status at Discharge Functional status at discharge: independent ambulation Overall status at discharge: patient is progressing back to baseline Mental Status: mental status grossly normal Speech and Movement: speech and movement normal Mood: congruent mood Affect: normal affect Exam Narrative Exam Narrative: General: Patient appears appropriate for age, in no acute distress comfortable with deep inspiration. Alert and oriented x3. He is mesomorphic and thinly built. He has multiple tattoos over his body. HEENT: Normocephalic, eyes with pupils equal and reactive light symmetrically, extraocular movement intact and sclera anicteric. Oropharynx with moist mucosa and good dentition. Neck: Supple without JVD. Back: Normal posture without CVA tenderness. Lungs: Decreased aeration over right base with no inspiratory crackles. Normal inspiratory to expiratory phase ratio. No rhonchi. Dullness to percussion over right base. No egophony. Heart: Regular rate and rhythm with no murmurs gallops appreciated. Extremities: Without clubbing, cyanosis or pitting edema. Peripheral pulses intact. All joints have good range of motion. Skin: Normal color, multiple tattoos over body, warm and dry. Neuro: Cranial Nerves 2-12 gross intact, no focalizing motor deficits. Psych: Normal mood and affect, no abnormal thought processes. Remote and recent memory intact. Psych Mental Status: mental status grossly normal Speech and Movement: speech and movement normal Mood: congruent mood Affect: normal affect DS: Data Vitals/I&O Vitals and I&O: Vital Signs Temperature 37.9 C H 06/11/21 11:24 Temperature Source Tympanic 06/11/21 11:24 Pulse 84 06/11/21 11:24 Pulse Rhythm Regular 06/11/21 10:22 Pulse 96 H 06/10/21 23:40 Respiratory Rate 18 06/11/21 11:24 Respiratory Effort Non-Labored 06/11/21 10:22 Respiratory Depth Normal 06/11/21 10:22 Blood Pressure 118/73 06/11/21 11:24 Blood Pressure Mean 81 06/10/21 23:31 Pulse Oximetry 95 06/11/21 11:24 Oxygen Delivery Method Room Air 06/11/21 11:24 Oxygen Flow Rate 0 06/11/21 11:24 Pain Level 6 06/11/21 10:22 Intake & Output 06/10/21 06/11/21 06/11/21 23:59 11:59 23:59 Intake Total 1230 / 1410 180 / 1410 Balance 1230 / 1410 180 / 1410 Weight 111.7 kg 111.7 kg Intake: IV 1030 / 1030 Oral 200 / 380 180 / 380 Other: Urine Appearance Clear Clear Data Completed and Pending Completed studies during hospitalization [Text1]: : 1985Age: 35 Exam(s) PROCEDURE INFORMATION: Exam: XR Chest Exam date and time: 06/10/2021 8:26 PM Age: 35 years old Clinical indication: Other: Right chest pain TECHNIQUE: Imaging protocol: XR of the chest. Views: 1 view. COMPARISON: No relevant prior studies available. FINDINGS: Lungs: Hypoventilatory study. No focal consolidation. Pleural spaces: Unremarkable. No pleural effusion. No pneumothorax. Heart/Mediastinum: Unremarkable. No cardiomegaly. Bones/joints: Unremarkable. IMPRESSION: No focal consolidation COMPARISON: XR PORTABLE CHEST AP 06/10/2021 8:45 PM FINDINGS: Pulmonary arteries: There is a filling defect at the segmental level in the right lower lobe posteriorly. See image 300 of series 6 and image 67 of series 7. Aorta: Unremarkable. No aortic aneurysm. Lungs: Fairly diffuse bilateral pulmonary opacities are seen that are favored to be inflammatory. In addition, there is a consolidation in right posterior base that is favored to be an infarct. Pleural spaces: Unremarkable. No pneumothorax. No pleural effusion. Heart: Unremarkable. No cardiomegaly. No pericardial effusion. Lymph nodes: Unremarkable. No enlarged lymph nodes. Bones/joints: Unremarkable. No acute fracture. Soft tissues: Unremarkable. IMPRESSION: 1. A segmental pulmonary embolus is seen in the right lower lobe posteriorly. 2. Additional diffuse inflam Labs on day of discharge: Labs from last 24 hours 06/11/21 06/11/21 06/10/21 07:28 07:28 23:50 WBC 9.01 RBC 4.33 L Hgb 12.6 L Hct 38.0 L MCV 87.8 MCH 29.1 MCHC 33.2 RDW 12.2 Plt Count 278 D MPV 9.6 Immature Gran % 0.3 Neutrophils % 73.0 Lymphocytes % 12.3 Monocytes % 14.1 Eosinophils % 0.1 Basophils % 0.2 Nucleated RBC % 0 Absolute Neutrophils 6.57 Absolute Lymphocytes 1.11 L Absolute Monocytes 1.27 H Absolute Eosinophils 0.01 Absolute Basophils 0.02 PT INR APTT VBG Lactate Sodium 139 Potassium 3.4 L Chloride 102 Carbon Dioxide 28.2 Anion Gap 8.8 BUN 15 Creatinine 1.1 Estimated GFR/1.73 m2 >= 60.00 Glucose 102 Calcium 8.9 Total Bilirubin 1.1 H AST 19 ALT 40 Alkaline Phosphatase 63 Total Protein 7.2 Albumin 3.2 L Lipase Urine Color Urine Clarity Urine pH Ur Specific [place] Urine Protein Urine Ketones Urine Blood Urine Nitrite Urine Bilirubin Urine Urobilinogen Ur Leukocyte Esterase Urine Glucose COVID-19 Source Nasal/Nares SARS-CoV-2 (PCR) Negative 06/10/21 06/10/21 06/10/21 20:40 20:29 20:13 WBC RBC Hgb Hct MCV MCH MCHC RDW Plt Count MPV Immature Gran % Neutrophils % Lymphocytes % Monocytes % Eosinophils % Basophils % Nucleated RBC % Absolute Neutrophils Absolute Lymphocytes Absolute Monocytes Absolute Eosinophils Absolute Basophils PT INR APTT VBG Lactate 2.1 H Sodium Potassium Chloride Carbon Dioxide Anion Gap BUN Creatinine Estimated GFR/1.73 m2 Glucose Calcium Total Bilirubin AST ALT Alkaline Phosphatase Total Protein Albumin Lipase Urine Color Cancelled Yellow Urine Clarity Cancelled Clear Urine pH Cancelled 6.5 Ur Specific [place] Cancelled 1.020 Urine Protein Cancelled Negative Urine Ketones Cancelled Negative Urine Blood Cancelled Negative Urine Nitrite Cancelled Negative Urine Bilirubin Cancelled Negative Urine Urobilinogen Cancelled 0.2 Ur Leukocyte Esterase Cancelled Negative Urine Glucose Cancelled Negative COVID-19 Source SARS-CoV-2 (PCR) 06/10/21 06/10/21 06/10/21 20:10 20:10 20:00 WBC 11.83 H RBC 4.97 Hgb 14.1 Hct 43.2 MCV 86.9 MCH 28.4 MCHC 32.6 RDW 12.3 Plt Count 405 H MPV 9.9 Immature Gran % 0.7 Neutrophils % 77.4 Lymphocytes % 11.8 Monocytes % 9.5 Eosinophils % 0.3 Basophils % 0.3 Nucleated RBC % 0 Absolute Neutrophils 9.16 H Absolute Lymphocytes 1.40 Absolute Monocytes 1.12 H Absolute Eosinophils 0.04 Absolute Basophils 0.04 PT 10.9 INR 1.1 APTT 28.3 H VBG Lactate Sodium 139 Potassium 3.3 L Chloride 99 Carbon Dioxide 31.3 Anion Gap 8.7 BUN 16 Creatinine 1.1 Estimated GFR/1.73 m2 >= 60.00 Glucose 100 Calcium 9.3 Total Bilirubin 0.8 AST 25 ALT 55 Alkaline Phosphatase 73 Total Protein 8.6 H Albumin 4.0 Lipase 77 Urine Color Urine Clarity Urine pH Ur Specific [place] Urine Protein Urine Ketones Urine Blood Urine Nitrite Urine Bilirubin Urine Urobilinogen Ur Leukocyte Esterase Urine Glucose COVID-19 Source SARS-CoV-2 (PCR) [facility] Active Problem List Pleuritic pain (Acute) Pulmonary embolism and infarction (Acute) Medical History No significant past medical history Surgical History No significant past surgical history Social History Smoking/Tobacco Use Status: Former Tobacco Use Smoking risk assessment performed?: Yes Alcohol Intake: never Drug use: Never Substance use type: does not use Do you feel safe at home: Yes Do you feel safe in your relationship?: Yes
--- NOTE | 2021-06-11 15:13 | PDOC.CMDIS ---
- If Service Date Differs Date of service: 06/11/21 Time of Service: 15:13 LACE Index Scoring Tool - Questions: Length of Stay (in days): 1 Acuity (Admit via E.D.?): Yes E.D. Visits: 2 - Answers: Total Score: 6 Risk of Readmission: Low Risk Care Management Discharge Reason for Hospitalization: Pulmonary Embolus; Pluritic Pain. Discharge Plan: Bang is discharged home with no services. He will follow up with his PCP and discharge plan of care as prescribed. He is being transported home via private vehicle by his fiancee. Patient/Family Education Needs: Review discharge instructions including limitations, medications, and follow up plan of care; discuss Ask Me Three and self management.
== END 2021-06-11 16:05 | disposition home or self-care (01) | DRG 176 ==
LOC: ER 23:13 → MS 06-11 00:01
PROVIDERS: Admitting Provider Family Medicine; Emergency Provider Emergency Medicine; Visit Provider Family Medicine
DX: I26.99 Other pulmonary embolism without acute cor pulmonale (principal); U09.9 Post COVID-19 condition, unspecified
CPT/HCPCS: 36415; 71275; 74177; 80053; 83690; 87635; 93005; 96361; 96372; 96374; 96375; 99285; 71045; 81003; 83605; 85025; 85610; 85730; 93010; 99223; 99238; J1650; J1885; J2270; J3490